=== PATIENT | female | born 1995 | race Caucasian/White ===

== ENCOUNTER 2018-01-20 22:52 | Emergency (ER) | payer OTHER ==
--- NOTE | 2018-01-21 00:08 | ED ---
GI/ HPI - HPI Summary HPI Summary: The patient is a 22 y/o F presenting to [facility] after contacting [facility] c/ o increased suprapubic menstrual cramping and vaginal bleeding within the last week. She had an IUD placed about 6 months ago in which the first month she had severe cramping as expected. Throughout the last 6 months, her menstrual periods have been shorter, but she has had severe cramping during the time of her period. Starting a week ago, she started bleeding more heavily than normal for her period with severe cramping, but it was around the expected time of her cycle. The bleeding and cramping stopped two days later, but then returned two days after that, and returned again today. A few hours before the bleeding starts she has severe cramping, which has been more localized on the left side of her uterus. The pain is rated 4/10 in severity. She denies vaginal itching. She has not had any previous genitourinary issues before. 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 - History of Current Complaint Chief Complaint: EDOBProblems Time Seen by Provider: 01/20/18 23:21 Stated Complaint: VAGINAL BLEEDING Hx Obtained From: Patient Onset/Duration: Started Days Ago, Still Present Timing: Constant, Lasting Days Severity: Moderate Current Severity: Moderate Pain Intensity: 4 Location of Pain: Suprapubic - left side Additional Location for Females: Uterus - left Additional Signs & Symptoms: Positive: Vaginal Bleeding, IUD, Menses Irregular, Other: - POSITIVE: cramping; NEGATIVE: vaginal itching Aggravating Factor(s): Nothing Alleviating Factor(s): Nothing - Allergy/Home Medications Allergies/Adverse Reactions: Allergies Allergy/AdvReac Type Severity Reaction Status Date / Time No Known Allergies Allergy Verified 01/20/18 22:56 Home Medications: Home Medications NK [No Home Medications Reported] 01/20/18 [History Confirmed 01/20/18] PMH/Surg Hx/FS Hx/Imm Hx Endocrine/Hematology History: Denies: Hx Diabetes Cardiovascular History: Denies: Hx Hypertension Sensory History: Denies: Hx Deafness Opthamlomology History: Denies: Hx Legally Blind EENT History: Denies: Hx Deafness Infectious Disease History: No Infectious Disease History: Denies: Traveled Outside the [place] in Last 30 Days - Family History Known Family History: Negative: Renal Disease - Social History Alcohol Use: Rare Substance Use Type: Reports: None Smoking Status (MU): Never Smoked Tobacco Review of Systems Positive: Abdominal Pain - suprapubic, more localized on left side of uterus Genitourinary: Negative - vaginal itching Positive: other - cramping and increased vaginal bleeding All Other Systems Reviewed And Are Negative: Yes Physical Exam - Summary Physical Exam Summary: Appearance: Well-appearing, Well-nourished, lying in bed comfortably Skin: Warm, dry, no obvious rash Eyes: sclera anicteric, no conjunctival pallor ENT: mucous membranes moist, pharynx appears normal Neck: Supple, nontender Respiratory: Clear to auscultation, no signs of respiratory distress Cardiovascular: Normal S1, S2. No murmurs. Normal distal pulses in tibial and radial bilaterally. Abdomen: Soft, nontender, normal active bowel sounds present Musculoskeletal: Normal, Strength/ROM Intact Neurological: A&Ox3, awake and alert, mentation is normal, speech is fluent and appropriate Psychiatric: affect is normal, does not appear anxious or depressed Pelvic exam shows no external abnormalities. Bimanual exam shows no cervical motion tenderness, very mild left adnexal tenderness, no right adnexal tenderness. There was no abnormal drainage noted from the cervical os, just slight bleeding. The string for the IUD was grasped with a forceps and the IUD was removed uneventfully. There was very slight bleeding associated with this. No purulence was noted. Triage Information Reviewed: Yes Vital Signs On Initial Exam: Initial Vitals Temp Pulse Resp BP Pulse Ox 98.4 F 83 16 130/79 98 01/20/18 22:55 01/20/18 22:55 01/20/18 22:55 01/20/18 22:55 01/20/18 22:55 Vital Signs Reviewed: Yes Diagnostics - Vital Signs Vital Signs Temp Pulse Resp BP Pulse Ox 01/20/18 22:55 98.4 F 83 16 130/79 98 - Laboratory Lab Statement: Any lab studies that have been ordered have been reviewed, and results considered in the medical decision making process. GIGU Course/Dx - Diagnoses Provider Diagnoses: Dysmenorrhea Discharge - Sign-Out/Discharge Documenting (check all that apply): Patient Departure - Pt will be discharged home. - Discharge Plan Condition: Good Disposition: HOME Patient Education Materials: Dysmenorrhea (ED) Referrals: No Primary Care Phys,NOPCP [Primary Care Provider] - Additional Instructions: There were no worrisome findings on your exam, but you did seem to be having trouble with the IUD so we removed it for you. Hopefully your menses will settle back to normal. Don't forget you'll need to use another method for control in the meantime! - Billing Disposition and Condition Condition: GOOD Disposition: Home Attestations Scribe Attestation: This is artem Felix documenting for attending Dr. Dwight Leon MD. User Type: Provider with Artem Provider Attestation: The documentation recorded by the emmieibe accurately reflects the service I personally performed and the decisions made by me.
[2018-01-21 01:59] VITALS: BP 123/74
== END 2018-01-21 01:45 | disposition home or self-care (01) ==
LOC: ED 22:52
DX: N94.6 Dysmenorrhea, unspecified (principal); Z97.5 Presence of (intrauterine) contraceptive device
CPT/HCPCS: 36415; 84702; 99282